=== PATIENT | female | born 1995 | race Caucasian/White ===

== ENCOUNTER 2019-06-03 03:43 | Emergency (ER) | payer MEDICAID ==
[~2019-06-03] VITALS: Ht 165.1 cm; Wt 62.2 kg
--- NOTE | 2019-06-03 04:12 | NUR ---
Patient's friend Ethel is at bedside
[2019-06-03] MEDS ORDERED: PRED20TA PO (04:26)
[2019-06-03] MEDS ORDERED: FAMO-128 PO (04:26)
[2019-06-03] MEDS ORDERED: famotidine 20mg tablet PO ONE (04:30)
[2019-06-03] MEDS ORDERED: predniSONE 20 mg tablet PO ONE (04:30)
[2019-06-03 04:44] VITALS: BP 115/71
== END 2019-06-03 04:42 | disposition home or self-care (01) ==
LOC: ER 03:44
DX: L50.9 Urticaria, unspecified (principal); Z79.899 Other long term (current) drug therapy
CPT/HCPCS: 99283; J7512